=== PATIENT | male | born 1960 | race American Indian/Alaskan Native ===

== ENCOUNTER 2018-03-25 02:04 | Emergency (ER) | payer MEDICAID ==
--- NOTE | 2018-03-25 02:59 | XRay Report ---
FINAL REPORT EXAM: XR CHEST ROUTINE 2V HISTORY: Shortness of breath TECHNIQUE: PA and lateral views of the chest were submitted. There are no previous studies available for comparison FINDINGS: The lungs are hyperinflated with scarring in both apices. The heart size is normal. There are no localized infiltrates. There is a very small loculated pneumothorax along the left lung base which may be chronic. There is localized scarring in the same location. The lungs are not congested. The skeletal structures do not show any acute changes. IMPRESSION: COPD. Scarring both lung apices as well as left lung base. Very small loculated pneumothorax along the left costophrenic angle which may be on a chronic basis. No acute infiltrates or congestion.
[2018-03-25 03:16] LABS: Basophils # (Auto) 0.1 K/mm3 (0.0-0.1); Basophils % (Auto) 0.9 % (0.0-1.8); Eosinophils # (Auto) 0.2 K/mm3 (0.0-0.4); Eosinophils % (Auto) 3.5 % (0.0-4.3); Hematocrit 38.9 % (35.5-45.6); Hemoglobin 13.3 gm/dl (11.8-15.2); Lymphocytes # (Auto) 1.6 K/mm3 (1.2-5.4); Lymphocytes % (Auto) 25.6 % (13.4-35.0); Mean Corpuscular HGB Conc 34 % (32-34); Mean Corpuscular Hemoglobin 32 pg (28-32); Mean Corpuscular Volume 94 fl (84-94); Monocytes # (Auto) 0.6 K/mm3 (0.0-0.8); Monocytes % (Auto) 8.6 % (0.0-7.3); Platelet Count 198 K/mm3 (140-440); Red Blood Count 4.15 M/mm3 (3.65-5.03); Red Cell Distribution Width 14.9 % (13.2-15.2)
[2018-03-25] MEDS ORDERED: PROVENTIL IH ONE ×2 (03:30→05:55)
[2018-03-25 03:33] LABS: BUN/Creatinine Ratio 15; Blood Urea Nitrogen 15 mg/dL (9-20); Calcium 8.7 mg/dL (8.4-10.2); Hemolysis Index 2
--- NOTE | 2018-03-25 06:23 | Emergency Department Report ---
ED Shortness of Breath HPI - General Chief Complaint: Dyspnea/Respdistress Stated Complaint: KAYLEY Time Seen by Provider: 03/25/18 06:20 Source: patient Mode of arrival: Stretcher Limitations: No Limitations - History of Present Illness Initial Comments: Patient with past history of COPD presents with difficulty breathing developing rapidly over the past hour. Patient was given nebulized albuterol by EMS prior to arrival, with significant improvement, with normalization of ventilations and vital signs by time of arrival. -: Sudden, hour(s) (2-3 hours) Pain Scale: 5 Quality: aching Consistency: intermittent Improves With: nothing Worsens With: nothing Known History Of: COPD Associated Symptoms: denies other symptoms - Related Data Previous Rx's Medication Instructions Recorded Last Taken Type Prednisone [predniSONE 5 mg (6-Day 5 mg PO .TAPER #1 tab.ds.pk 12/29/16 Unknown Rx Pack, 21 Tabs)] Albuterol Sulfate [Ventolin HFA] 2 puff IH Q4H PRN #1 hfa.aer.ad 03/25/18 Unknown Rx Azithromycin [Zithromax TAB] 500 mg PO QDAY #3 tablet 03/25/18 Unknown Rx predniSONE [Deltasone] 20 mg PO QDAY #15 tablet 03/25/18 Unknown Rx Allergies Allergy/AdvReac Type Severity Reaction Status Date / Time No Known Allergies Allergy Unverified 07/18/13 02:27 ED Review of Systems ROS: Stated complaint: KAYLEY Other details as noted in HPI Comment: All other systems reviewed and negative Constitutional: denies: chills, diaphoresis, fever Eyes: denies: eye pain, eye discharge, vision change ENT: denies: ear pain, throat pain Respiratory: cough (chronic, without production of sputum), shortness of breath (chronic, recurrent, secondary to COPD) Cardiovascular: chest pain (anterior left chest, associated with difficulty breathing) Endocrine: no symptoms reported Gastrointestinal: denies: abdominal pain, nausea, diarrhea Musculoskeletal: denies: back pain, joint swelling, arthralgia Skin: denies: rash, lesions ED Past Medical Hx - Past Medical History Previous Medical History?: Yes Hx COPD: Yes - Surgical History Past Surgical History?: No - Social History Smoking Status: Current Every Day Smoker Substance Use Type: None - Medications Home Medications: Home Medications Medication Instructions Recorded Confirmed Last Taken Type Prednisone [predniSONE 5 mg (6-Day 5 mg PO .TAPER #1 tab.ds.pk 12/29/16 Unknown Rx Pack, 21 Tabs)] Albuterol Sulfate [Ventolin HFA] 2 puff IH Q4H PRN #1 hfa.aer.ad 03/25/18 Unknown Rx Azithromycin [Zithromax TAB] 500 mg PO QDAY #3 tablet 03/25/18 Unknown Rx predniSONE [Deltasone] 20 mg PO QDAY #15 tablet 03/25/18 Unknown Rx ED Physical Exam - General Limitations: No Limitations General appearance: in no apparent distress (examined after patient had received 2 nebulized bronchodilator treatments) - Head Head exam: Present: atraumatic, normocephalic - Eye Eye exam: Present: PERRL - ENT ENT exam: Present: normal exam - Neck Neck exam: Present: normal inspection, other (negative for JVD). Absent: tenderness - Respiratory Respiratory exam: Present: wheezes (scattered, and expiratory,), chest wall tenderness (left anterior and lateral chest wall, reproduces discomfort). Absent: respiratory distress - Cardiovascular Cardiovascular Exam: Present: regular rate, normal rhythm. Absent: systolic murmur, diastolic murmur, rubs, gallop - GI/Abdominal GI/Abdominal exam: Present: soft, normal bowel sounds - External exam: Present: normal external exam - Extremities Exam Extremities exam: Present: normal inspection - Back Exam Back exam: Present: normal inspection - Neurological Exam Neurological exam: Present: alert, oriented X3 - Psychiatric Psychiatric exam: Present: normal affect, normal mood - Skin Skin exam: Present: warm, dry, intact, normal color. Absent: rash ED Course Vital Signs 03/25/18 03/25/18 03/25/18 02:07 06:08 07:33 Temperature 97.5 F L 97.6 F Pulse Rate 88 66 Respiratory 20 24 25 H Rate Blood Pressure 135/84 Blood Pressure 139/88 [Right] O2 Sat by Pulse 96 99 Oximetry ED Medical Decision Making - Lab Data Result diagrams: 03/25/18 02:51 03/25/18 02:51 - EKG Data -: EKG Interpreted by [facility] EKG shows normal: sinus rhythm, intervals (normal NC interval, normal QT interval of [address]-T waves (nonspecific anterior precordial ST elevation, no findings of acute SD.) Rate: normal - Radiology Data Radiology results: report reviewed Chest x-ray was negative for acute lobar infiltrate, but there was hyperinflation of COPD, and there was suggestion of a pneumothorax in the left costophrenic angle, perhaps loculated. CT scan of chest was performed without contrast for evaluation of pneumothorax, this was seen to be an emphysematous bleb, but no evidence of acute pneumothorax. - Medical Decision Making Patient has had an acute exacerbation of COPD, with significant improvement after treatment with Solu-Medrol and 2 rounds of bronchodilators with albuterol. He is stable for discharge home with a short course of antibodies, azithromycin, as well as prednisone on a tapering dose, and refill of his bronchodilator medications. Critical Care Time: No Critical care attestation.: If time is entered above; I have spent that time in minutes in the direct care of this critically ill patient, excluding procedure time. ED Disposition Clinical Impression: COPD (chronic obstructive pulmonary disease) with acute bronchitis, Respiratory distress, acute Disposition: DC-01 TO HOME OR SELFCARE Is pt being admited?: No Does the pt Need Aspirin: No Condition: Stable Instructions: Acute Bronchitis (ED), Chronic Obstructive Pulmonary Disease (ED) , Chronic Bronchitis (ED) Prescriptions: Albuterol Sulfate [Ventolin HFA] 2 puff IH Q4H PRN #1 hfa.aer.ad PRN Reason: Shortness Of Breath Azithromycin [Zithromax TAB] 500 mg PO QDAY #3 tablet predniSONE [Deltasone] 20 mg PO QDAY #15 tablet Referrals: PRIMARY CARE, [Primary Care Provider] - 3-5 Days Time of Disposition: 10:06
--- NOTE | 2018-03-25 07:34 | Cat Scan Report ---
FINAL REPORT EXAM: CT CHEST WO CON HISTORY: COPD, eval LLL loculated pneumothorax TECHNIQUE: Routine axial imaging was obtained of the thorax without IV contrast with sagittal coronal reconstructions. Correlation is made to the chest x-ray of 03/25/2018. FINDINGS: The lungs reveal extensive emphysema with multiple bulla particularly in the upper lobes. There are numerous blebs scattered throughout both lungs. In the left lung base there is localized pleural parenchymal scarring with several blebs. This is accounting for appearance of a localized pneumothorax on the chest radiograph. There are no infiltrates or congestion. The heart size is normal. The thoracic aorta is normal in caliber. There is no evidence of adenopathy or pericardial effusion. The skeletal structures reveal mild disc degeneration in the thoracic spine. At the thoracic inlet the thyroid gland appears normal. In the upper abdomen the adrenal glands not enlarged. IMPRESSION: Severe emphysema with extensive bullous changes particularly upper lobes with scattered blebs throughout both lungs. Pleural parenchymal scarring in the left lung base with localized blebs. A definite pneumothorax is not seen along the left lung base. No evidence of acute infiltrates, congestion or pleural effusion.
[2018-03-25 10:07] VITALS: BP 151/101
== END 2018-03-25 10:20 | disposition home or self-care (01) ==
LOC: ED 02:04
DX: J44.9 Chronic obstructive pulmonary disease, unspecified (principal); F17.200 Nicotine dependence, unspecified, uncomplicated
CPT/HCPCS: 36415; 71046; 71250; 80048; 84484; 85025; 93005; 93010; 96374; 99285; J2930

== ENCOUNTER 2019-09-28 10:50 | Emergency (ER) | payer MEDICAID ==
--- NOTE | 2019-09-28 11:53 | Event Note ---
ED Screening Note Date of service: 09/28/19 Time: 11:48 ED Screening Note: This is a 59 y.o. M. that presents to the ER with left fractured distal ulner 3 weeks ago in [place]. He was referred to Orthopedic Surgeon there but they didn't take his insurance. Reports pain and not sure where to follow up at. This initial assessment/diagnostic orders/clinical plan/treatment(s) is/are subject to change based on patients health status, clinical progression and re- assessment by fellow clinical providers in the ED. Further treatment and workup at subsequent clinical providers discretion. Patient/guardian urged not to elope from the ED as their condition may be serious if not clinically assessed and managed. Initial orders include:
[2019-09-28 12:01] VITALS: BP 150/88
[2019-09-28] MEDS ORDERED: HYDROcodone/ACETAMINOPHEN 5-325 MG TAB PO ONE (13:36)
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
== END 2019-09-28 14:43 | disposition home or self-care (01) ==
LOC: ED 10:50
DX: S52.602A Unspecified fracture of lower end of left ulna, initial encounter for closed fracture (principal); J44.9 Chronic obstructive pulmonary disease, unspecified; Z79.899 Other long term (current) drug therapy; X58.XXXA Exposure to other specified factors, initial encounter; Y93.89 Activity, other specified; Y92.89 Other specified places as the place of occurrence of the external cause; Y99.8 Other external cause status

== ENCOUNTER 2020-05-17 02:09 | Emergency (ER) | payer MEDICAID ==
--- NOTE | 2020-05-17 05:17 | Emergency Department Report ---
ED Shortness of Breath HPI - General Chief Complaint: Dyspnea/Respdistress Stated Complaint: SHORTNESS OF BREATH Time Seen by Provider: 05/17/20 03:39 Source: patient Mode of arrival: Ambulatory Limitations: No Limitations - History of Present Illness Initial Comments: 60-year-old male with history of COPD presents to ED with shortness of breath. Reports chest congestion x1 week. Patient reports he has a chronic cough. Patient denies fever, vomiting, diarrhea loss of smell or taste, or known exposure to anyone who has tested positive for COVID-19. Patient states he ran out of his albuterol inhaler. Complaint: shortness of breath -: week(s) (1) Severity: mild Consistency: constant Improves With: nothing Worsens With: exertion Known History Of: COPD Treatments Prior to Arrival: none - Related Data Home Oxygen Therapy: No Previous Rx's Medication Instructions Recorded Last Taken Type Cyclobenzaprine [Flexeril] 10 mg PO QHS #20 tablet 09/28/19 Unknown Rx HYDROcodone/APAP 5-325 [[place] 1 each PO Q6HR #10 tablet 09/28/19 Unknown Rx 5/325] Naproxen [Naprosyn] 500 mg PO BID #30 tablet 09/28/19 Unknown Rx Albuterol Sulfate [Proventil Hfa] 2 puff IH Q4HR PRN #1 hfa.aer.ad 05/17/20 Unknown Rx predniSONE [Deltasone] 50 mg PO QDAY #5 tab 05/17/20 Unknown Rx Allergies Allergy/AdvReac Type Severity Reaction Status Date / Time No Known Allergies Allergy Verified 05/17/20 02:14 ED Review of Systems ROS: Stated complaint: SHORTNESS OF BREATH Other details as noted in HPI Comment: All other systems reviewed and negative Constitutional: denies: fever Respiratory: cough, shortness of breath Gastrointestinal: denies: vomiting, diarrhea ED Past Medical Hx - Past Medical History Previous Medical History?: Yes Hx COPD: Yes Additional medical history: sinus - Surgical History Past Surgical History?: No - Social History Smoking Status: Never Smoker Substance Use Type: Alcohol - Medications Home Medications: Home Medications Medication Instructions Recorded Confirmed Last Taken Type Cyclobenzaprine [Flexeril] 10 mg PO QHS #20 tablet 09/28/19 Unknown Rx HYDROcodone/APAP 5-325 [[place] 1 each PO Q6HR #10 tablet 09/28/19 Unknown Rx 5/325] Naproxen [Naprosyn] 500 mg PO BID #30 tablet 09/28/19 Unknown Rx Albuterol Sulfate [Proventil Hfa] 2 puff IH Q4HR PRN #1 hfa.aer.ad 05/17/20 Unknown Rx predniSONE [Deltasone] 50 mg PO QDAY #5 tab 05/17/20 Unknown Rx ED Physical Exam - General Limitations: No Limitations General appearance: alert, in no apparent distress - Head Head exam: Present: atraumatic, normocephalic - Eye Eye exam: Present: normal appearance, EOMI - ENT ENT exam: Present: mucous membranes moist - Neck Neck exam: Present: normal inspection - Respiratory Respiratory exam: Present: normal lung sounds bilaterally. Absent: respiratory distress - Cardiovascular Cardiovascular Exam: Present: regular rate, normal rhythm - GI/Abdominal GI/Abdominal exam: Present: soft. Absent: distended, tenderness - Extremities Exam Extremities exam: Present: normal inspection - Neurological Exam Neurological exam: Present: alert, oriented X3 - Psychiatric Psychiatric exam: Present: normal affect, normal mood - Skin Skin exam: Present: warm, dry, intact, normal color ED Course Vital Signs 05/17/20 02:12 Temperature 98.0 F Pulse Rate 95 H Respiratory 18 Rate Blood Pressure 131/83 O2 Sat by Pulse 99 Oximetry ED Medical Decision Making - Radiology Data Radiology results: report reviewed, image reviewed - Medical Decision Making 60-year-old, history of COPD, male presents to ED with shortness of breath. Patient states he has run out of his inhaler. O2 sats are normal, along with the remainder of his vital signs. Patient laying on a stretcher asleep when I arrived to examine him. Lungs are clear. Chest x-ray is negative for any acute findings. Patient will be discharged home with prescription for albuterol inhaler and prednisone. Outpatient follow-up advised. - Differential Diagnosis COPD, pneumonia, pulmonary edema Critical care attestation.: If time is entered above; I have spent that time in minutes in the direct care of this critically ill patient, excluding procedure time. ED Disposition Clinical Impression: COPD (chronic obstructive pulmonary disease) Disposition: - TO HOME OR SELFCARE Is pt being admited?: No Condition: Stable Instructions: Chronic Obstructive Pulmonary Disease (ED) Prescriptions: predniSONE [Deltasone] 50 mg PO QDAY #5 tab Albuterol Sulfate [Proventil Hfa] 2 puff IH Q4HR PRN #1 hfa.aer.ad PRN Reason: Wheezing Referrals: PRIMARY CARE, [Primary Care Provider] - 3-[address] [facility] [Provider Group] - 3-5 Days Time of Disposition: 05:27
--- NOTE | 2020-05-17 05:19 | XRay Report ---
CHEST 1 VIEW 4:50 AM INDICATION / CLINICAL INFORMATION: Shortness of breath and chest congestion. Productive cough. COMPARISON: 03/25/18. FINDINGS: SUPPORT DEVICES: None. HEART / MEDIASTINUM: The heart size and pulmonary vasculature are normal. LUNGS / PLEURA: The lungs are mildly hyperinflated with mild bullous changes in both lung apices. No pneumothorax. ADDITIONAL FINDINGS: No significant additional findings. IMPRESSION: Emphysema without acute abnormality or other change. There is no evidence of pneumonia or edema. Signer Name: Odilon Mari MD Signed: 05/17/2020 5:14 AM Workstation Name: [id number]
[2020-05-17 06:21] VITALS: BP 128/78
== END 2020-05-17 06:00 | disposition home or self-care (01) ==
LOC: ED 02:09
DX: J44.9 Chronic obstructive pulmonary disease, unspecified (principal); Z79.899 Other long term (current) drug therapy
CPT/HCPCS: 71045; 99283

== ENCOUNTER 2021-02-10 07:17 | Emergency (ER) | payer MEDICAID ==
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
[2021-02-10] MEDS ORDERED: MORPHINE 4 MG/1 ML INJ IV ONE (10:40)
[2021-02-10] MEDS ORDERED: ONDANSETRON 4 MG/2 ML INJ IV ONE (10:40)
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
[2021-02-10 12:28] LABS: Basophils % (Auto) 0.4 % (0.0-1.8); Eosinophils # (Auto) 0.2 K/mm3 (0.0-0.4); Hematocrit 41.7 % (35.5-45.6); Hemoglobin 14.1 gm/dl (11.8-15.2); Lymphocytes # (Auto) 1.4 K/mm3 (1.2-5.4); Lymphocytes % (Auto) 17.7 % (13.4-35.0); Mean Corpuscular HGB Conc 34 % (32-34); Mean Corpuscular Volume 97 fl (84-94); Monocytes # (Auto) 0.7 K/mm3 (0.0-0.8); Monocytes % (Auto) 9.1 % (0.0-7.3); Platelet Count 179 K/mm3 (140-440); Red Blood Count 4.29 M/mm3 (3.65-5.03); Red Cell Distribution Width 14.5 % (13.2-15.2)
[2021-02-10 12:45] LABS: Alanine Aminotransferase 12 units/L (7-56); Albumin 3.8 g/dL (3.9-5); BUN/Creatinine Ratio 13; Blood Urea Nitrogen 17 mg/dL (9-20); Calcium 8.8 mg/dL (8.4-10.2); Hemolysis Index 9
--- NOTE | 2021-02-10 13:14 | Cat Scan Report ---
CT NECK WITH CONTRAST HISTORY: Crepitus COMPARISON: Facial CT done earlier on 02-10-21 TECHNIQUE: Routine CT of the neck is performed following intravenous contrast. All CT scans at this [facility] are performed using CT dose reduction for ALARA by means of automated exposure control. CONTRAST: 100 mL Omnipaque 300 FINDINGS: Skull Base: No significant abnormality. Parotid, Carotid, Retropharyngeal, Prevertebral, Pharyngeal Mucosal, and Wire Coiler Spaces: There is subcutaneous air in the right cheek and right neck extending into the right database manager space, right c arotid space, and into the pharyngeal soft tissues. Airway: Patent and without significant abnormality. Lymphatics: No lymphadenopathy. Vasculature: No significant abnormality. Osseous Structures: Previously demonstrated right maxillary sinus wall fracture appears unchanged. Additional findings: None. IMPRESSION: 1. Extensive subcutaneous air in the right side of the neck extending into the retropharyngeal space. The retropharyngeal air extends down to about the T1 vertebral level. There are no focal focal occlu sions. 2. Previously seen right maxillary sinus fracture appears unchanged. Signer Name: Vincetn Da Silva MD Signed: 02/10/2021 1:09 PM Workstation Name: [id number]
--- NOTE | 2021-02-10 13:14 | Cat Scan Report ---
CT CHEST WITH CONTRAST INDICATION / CLINICAL INFORMATION: Pneumomediastinum. TECHNIQUE: Axial CT images were obtained through the chest after [address] scans at this location are performed using CT dose reduction for ALARA by means of automated exposure control. COMPARISON: March 25, 2018 FINDINGS: Significant emphysematous changes seen in bilateral lungs with scarring in lung apices. No large pneu mothorax is seen. Minimal atelectasis in the left lower lung. Soft tissue gas is seen tracking within the neck. Please see CT neck soft tissues. No acute bone findings are seen. Gas extends to the super ior mediastinum however the middle mediastinum appears normal. Heart and aorta appear normal. There a re multiple hypodensities scattered throughout the liver. A few renal hypodensities are seen bilatera lly. IMPRESSION: 1. Severe emphysema with extensive bullous changes in the upper lobes. No pneumothorax. 2. Emphysematous gas is seen within the soft tissues of neck. Please see CT soft tissue neck. Signer Name: Evans Greene MD Signed: 02/10/2021 1:10 PM Workstation Name: [id number]
[2021-02-10 19:47] VITALS: BP 121/81
== END 2021-02-10 19:47 | disposition other institution (70) ==
LOC: ED 07:17
DX: S02.40EA Zygomatic fracture, right side, initial encounter for closed fracture (principal); S02.40CA Maxillary fracture, right side, initial encounter for closed fracture; S02.2XXA Fracture of nasal bones, initial encounter for closed fracture; J44.9 Chronic obstructive pulmonary disease, unspecified; F17.200 Nicotine dependence, unspecified, uncomplicated; Z79.899 Other long term (current) drug therapy; Y04.2XXA Assault by strike against or bumped into by another person, initial encounter; Y93.89 Activity, other specified; Y92.89 Other specified places as the place of occurrence of the external cause; Y99.8 Other external cause status
CPT/HCPCS: 36415; 70450; 70486; 70491; 71260; 80053; 85025; 96374; 96375; 99285; J2270; J2405; Q9967

== ENCOUNTER 2021-09-02 02:58 | Inpatient (IN) | payer MEDICAID ==
--- NOTE | 2021-09-02 03:11 | Emergency Department Report ---
ED Shortness of Breath HPI - General Chief Complaint: Dyspnea/Respdistress Stated Complaint: KAYLEY Time Seen by Provider: 09/02/21 03:06 Source: patient Mode of arrival: Stretcher Limitations: No Limitations - History of Present Illness Initial Comments: Patient is a 61-year-old male who presents emergency room with complaints of chest pain shortness of breath. Patient states his symptoms started 24 hours ago. Patient states his symptoms are the same. Patient states he also has a dry cough. Patient denies fever or chills. Patient states he ran out of his COPD medications. Patient states he feels like a COPD exacerbation. Patient states his chest pain pain. Patient states the chest pain is bilateral. Patient states the pain is better with rest. Patient states the pain is worse with cough and movement. Patient states the pain is a 2 out of 10. Patient states it is a pressure. Patient states that shortness of breath is better with rest and worse with exertion. Patient denies recent travel. Patient denies recent international travel. Patient denies exposure to the novel coronavirus. Patient denies sick contacts. Patient denies fever and chills. Patient denies cough. Patient denies diarrhea. Patient denies coming in contact with anybody with symptoms of the novel coronavirus. Patient brought in by EMS. EMS gave the patient albuterol 5 mg. Patient's lung sounds improved with the albuterol per EMS. Report received EMS. Complaint: shortness of breath, cough, chest pain -: Sudden - Related Data Previous Rx's Medication Instructions Recorded Last Taken Type Albuterol Sulfate [Proventil Hfa] 2 puff IH Q4HR PRN #1 hfa.aer.ad 05/17/20 08/29/21 Rx Allergies Allergy/AdvReac Type Severity Reaction Status Date / Time No Known Allergies Allergy Verified 09/04/21 12:07 ED Review of Systems ROS: Stated complaint: KAYLEY Other details as noted in HPI Constitutional: denies: chills, fever Eyes: denies: eye pain, eye discharge, vision change ENT: denies: ear pain, throat pain Respiratory: see HPI, cough, shortness of breath. denies: wheezing Cardiovascular: as per HPI, chest pain. denies: palpitations Endocrine: no symptoms reported Gastrointestinal: denies: abdominal pain, nausea, diarrhea Genitourinary: denies: urgency, dysuria Musculoskeletal: denies: back pain, joint swelling, arthralgia Skin: denies: rash, lesions Neurological: denies: headache, weakness, paresthesias Psychiatric: denies: anxiety, depression Hematological/Lymphatic: denies: easy bleeding, easy bruising ED Past Medical Hx - Past Medical History Previous Medical History?: Yes Hx COPD: Yes Additional medical history: sinus - Surgical History Past Surgical History?: No - Family History Family history: no significant - Social History Smoking Status: Current Every Day Smoker Substance Use Type: None - Medications Home Medications: Home Medications Medication Instructions Recorded Confirmed Last Taken Type Albuterol Sulfate [Proventil Hfa] 2 puff IH Q4HR PRN #1 hfa.aer.ad 05/17/20 09/04/21 08/29/21 Rx ED Physical Exam - General Limitations: No Limitations General appearance: alert, in no apparent distress - Head Head exam: Present: atraumatic, normocephalic - Eye Eye exam: Present: normal appearance - ENT ENT exam: Present: mucous membranes moist - Neck Neck exam: Present: normal inspection - Respiratory Respiratory exam: Present: normal lung sounds bilaterally, chest wall tenderness, decreased breath sounds. Absent: wheezes, rales, rhonchi, stridor, accessory muscle use - Cardiovascular Cardiovascular Exam: Present: regular rate, normal rhythm. Absent: systolic murmur, diastolic murmur, rubs, gallop - GI/Abdominal GI/Abdominal exam: Present: soft, normal bowel sounds - Rectal Rectal exam: Present: deferred - Extremities Exam Extremities exam: Present: normal inspection - Back Exam Back exam: Present: normal inspection - Neurological Exam Neurological exam: Present: alert, oriented X3 - Psychiatric Psychiatric exam: Present: normal affect, normal mood - Skin Skin exam: Present: warm, dry, intact, normal color. Absent: rash ED Course Vital Signs 09/02/21 09/02/21 09/02/21 03:19 04:45 05:01 Temperature 98.3 F Pulse Rate 82 88 80 Respiratory 18 12 25 H Rate Blood Pressure 121/79 129/85 Blood Pressure 141/92 [Left] O2 Sat by Pulse 100 95 97 Oximetry 09/02/21 09/02/21 09/02/21 05:15 05:31 05:45 Temperature Pulse Rate 80 80 77 Respiratory 19 20 19 Rate Blood Pressure 117/81 112/74 104/70 Blood Pressure [Left] O2 Sat by Pulse 98 98 98 Oximetry 09/02/21 09/02/21 09/02/21 06:01 06:15 06:31 Temperature Pulse Rate 80 85 77 Respiratory 17 19 17 Rate Blood Pressure 112/74 116/80 111/76 Blood Pressure [Left] O2 Sat by Pulse 99 97 100 Oximetry 09/02/21 09/02/21 09/02/21 06:45 07:01 07:15 Temperature Pulse Rate 78 75 77 Respiratory 24 21 19 Rate Blood Pressure 113/75 111/76 121/74 Blood Pressure [Left] O2 Sat by Pulse 100 100 100 Oximetry 09/02/21 09/02/21 09/02/21 07:31 07:45 08:01 Temperature Pulse Rate 77 76 83 Respiratory 19 20 20 Rate Blood Pressure 113/75 106/78 131/84 Blood Pressure [Left] O2 Sat by Pulse 100 100 100 Oximetry 09/02/21 09/02/21 09/02/21 08:15 08:31 08:45 Temperature Pulse Rate 82 76 76 Respiratory 21 22 16 Rate Blood Pressure 124/81 122/83 118/78 Blood Pressure [Left] O2 Sat by Pulse 100 100 100 Oximetry 09/02/21 09/02/21 09/02/21 09:01 09:15 09:31 Temperature Pulse Rate 78 80 79 Respiratory 22 20 20 Rate Blood Pressure 122/83 129/87 110/75 Blood Pressure [Left] O2 Sat by Pulse 98 100 100 Oximetry 09/02/21 09/02/21 09/02/21 09:45 10:01 10:15 Temperature Pulse Rate 79 82 85 Respiratory 20 21 19 Rate Blood Pressure 107/69 132/67 139/88 Blood Pressure [Left] O2 Sat by Pulse 100 99 100 Oximetry 09/02/21 09/02/21 09/02/21 10:31 10:45 11:01 Temperature Pulse Rate 77 76 75 Respiratory 19 19 17 Rate Blood Pressure 110/72 117/78 110/72 Blood Pressure [Left] O2 Sat by Pulse 100 100 99 Oximetry 09/02/21 09/02/21 09/02/21 11:15 11:31 11:45 Temperature Pulse Rate 80 79 82 Respiratory 21 21 21 Rate Blood Pressure 111/78 119/79 136/80 Blood Pressure [Left] O2 Sat by Pulse 100 98 100 Oximetry 09/02/21 09/02/2109/02/21 12:01 12:15 12:31 Temperature Pulse Rate 83 79 72 Respiratory 21 20 21 Rate Blood Pressure 133/90 142/87 115/77 Blood Pressure [Left] O2 Sat by Pulse 100 100 100 Oximetry 09/02/21 09/02/21 09/02/21 12:45 13:01 13:15 Temperature Pulse Rate 74 73 79 Respiratory 18 18 19 Rate Blood Pressure 129/77 103/70 121/76 Blood Pressure [Left] O2 Sat by Pulse 99 99 100 Oximetry 09/02/21 09/02/21 09/02/21 13:31 13:45 14:01 Temperature Pulse Rate 85 85 95 H Respiratory 17 17 21 Rate Blood Pressure 126/84 109/79 126/83 Blood Pressure [Left] O2 Sat by Pulse 100 99 98 Oximetry 09/02/21 09/02/21 09/02/21 14:15 14:31 14:45 Temperature Pulse Rate Respiratory Rate Blood Pressure 127/107 133/85 139/86 Blood Pressure [Left] O2 Sat by Pulse 99 74 L 96 Oximetry 09/02/21 09/02/21 09/02/21 14:49 15:01 15:15 Temperature 98.5 F Pulse Rate 80 Respiratory 18 Rate Blood Pressure 124/85 121/78 Blood Pressure 98/62 [Left] O2 Sat by Pulse 98 96 98 Oximetry 09/02/21 09/02/21 09/02/21 15:31 15:45 16:01 Temperature Pulse Rate Respiratory Rate Blood Pressure 117/78 114/78 122/80 Blood Pressure [Left] O2 Sat by Pulse 99 98 97 Oximetry - Reevaluation(s) Reevaluation #1: Patient is short of breath again. Patient's wheezing again. Patient will be given steroids and DuoNeb. Patient has a CT scan pending. 09/02/21 05:50 Reevaluation #2: Patient signed out to the oncoming physician to follow-up on pending CT scan of the chest and admit the patient to the hospital service. 09/02/21 06:11 - Consultations Consultation #1: Hospitalist consulted for admission. Hospitalist to admit patient. Hospitalist after the patient even though the patient has a pending CT scan of the chest. 09/02/21 06:20 ED Medical Decision Making - Lab Data Result diagrams: 09/02/21 03:47 09/03/21 09:37 - EKG Data -: EKG Interpreted by Md EKG shows normal: sinus rhythm, axis, intervals, QRS complexes, ST-T waves Rate: normal - Radiology Data Radiology results: report reviewed CHEST 2 VIEWS INDICATION / CLINICAL INFORMATION: Dyspnea. COMPARISON: 05/17/2020 FINDINGS: There is lucency in the left costophrenic angle which could represent left lower lung small pneumothorax. Nodular density over the right lung may represent nipple shadow. No focal co nsolidation IMPRESSION: Lucency of the left costophrenic angle could represent left pneumothorax. A CT could be performed for further evaluation. CT CHEST WITH CONTRAST INDICATION / CLINICAL INFORMATION: sob. abn chest xr. TECHNIQUE: Axial CT images were obtained through the chest after IV contrast. All CT scans at this location are performed using CT dose reduction for ZolkC by means of automated exposure control. COMPARISON: None available. FINDINGS: Diffuse emphysematous changes seen within the lungs. No focal consolidation is seen. Minimal atelectasis. Heart and aorta appear normal. Atherosclerotic changes seen throughout the aorta ADDITIONAL FINDINGS: None. UPPER ABDOMEN: No significant abnormality. SKELETAL SYSTEM: No significant abnormality. IMPRESSION: 1. No pneumothorax is seen. Lungs are hyperinflated suggesting COPD - Medical Decision Making Patient is a 61-year-old male who presents emergency room with complaints of cough, shortness of breath, chest pain. Patient's chest pain was reproducible with palpation. Patient has a history of COPD. Patient given albuterol by EMS. Patient's lung sounds improved. Patient while in the ER began to wheeze and have shortness of breath again patient was given Solu-Medrol and another DuoNeb. Patient had labs done which were essentially unremarkable. Patient had a chest x-ray done which showed a possible pneumothorax and the radiologist recommended a CT scan of the chest. CT scan of the chest was performed. Patient CT scan of the chest shows no pneumothorax. No pneumonia noted. Patient had labs done which were essentially unremarkable. Patient admitted to the hospital service for further evaluation treatment. Critical care time documented due to the multiple reassessments, prolonged time at the bedside, interpretation of diagnostics and labs. - Differential Diagnosis Chest pain, shortness of breath, COPD exacerbation, pneumonia. Critical Care Time: Yes Critical care time in (mins) excluding proc time.: 35 Critical care attestation.: If time is entered above; I have spent that time in minutes in the direct care of this critically ill patient, excluding procedure time. Critical Care Time: 35 minutes ED Disposition Clinical Impression: COPD exacerbation, Chest wall pain, Shortness of breath, Abnormal chest x-ray Chest pain Qualifiers: Chest pain type: unspecified Qualified Code(s): R07.9 - Chest pain, unspecified Disposition: 09 ADMITTED INPATIENT Is pt being admited?: Yes Does the pt Need Aspirin: No Condition: Stable Time of Disposition: 06:29
--- NOTE | 2021-09-02 03:57 | XRay Report ---
CHEST 2 VIEWS INDICATION / CLINICAL INFORMATION: Dyspnea. COMPARISON: 05/17/2020 FINDINGS: There is lucency in the left costophrenic angle which could represent left lower lung small pneumotho rax. Nodular density over the right lung may represent nipple shadow. No focal consolidation IMPRESSION: Lucency of the left costophrenic angle could represent left pneumothorax. A CT could be performed for further evaluation. Signer Name: Evans Greene MD Signed: 09/02/2021 3:52 AM Workstation Name: [id number]
[2021-09-02 04:07] LABS: Basophils % (Auto) 0.6 % (0.0-1.8); Eosinophils # (Auto) 0.5 K/mm3 (0.0-0.4); Eosinophils % (Auto) 5.7 % (0.0-4.3); Hematocrit 49.8 % (35.5-45.6); Hemoglobin 16.3 gm/dl (11.8-15.2); Lymphocytes # (Auto) 1.7 K/mm3 (1.2-5.4); Lymphocytes % (Auto) 21.2 % (13.4-35.0); Mean Corpuscular HGB Conc 33 % (32-34); Mean Corpuscular Volume 100 fl (84-94); Monocytes # (Auto) 0.9 K/mm3 (0.0-0.8); Monocytes % (Auto) 10.7 % (0.0-7.3); Platelet Count 220 K/mm3 (140-440); Red Cell Distribution Width 15.1 % (13.2-15.2)
[2021-09-02] MEDS ORDERED: methylPREDNISolone Sod Succinate 125 MG/2 ML INJ IV ONE (05:56)
[2021-09-02] MEDS ORDERED: IPRATROPIUM/ALBUTEROL SULFATE 3 ML AMPUL.NEB IH ONE (06:08)
[2021-09-02 06:18] LABS: Calcium 9.3 mg/dL (8.4-10.2)
--- NOTE | 2021-09-02 07:25 | Cat Scan Report ---
CT CHEST WITH CONTRAST INDICATION / CLINICAL INFORMATION: sob. abn chest xr. TECHNIQUE: Axial CT images were obtained through the chest after IV contrast. All CT scans at this location are performed using CT dose reduction for ALARA by means of automated exposure control. COMPARISON: None available. FINDINGS: Diffuse emphysematous changes seen within the lungs. No focal consolidation is seen. Minimal atelecta sis. Heart and aorta appear normal. Atherosclerotic changes seen throughout the aorta ADDITIONAL FINDINGS: None. UPPER ABDOMEN: No significant abnormality. SKELETAL SYSTEM: No significant abnormality. IMPRESSION: 1. No pneumothorax is seen. Lungs are hyperinflated suggesting COPD Signer Name: Evans Greene MD Signed: 09/02/2021 7:20 AM Workstation Name: [id number]
[2021-09-02] MEDS ORDERED: LIDOCAINE-MPF (1%) 10 MG/1 ML VIAL 5 ML INFILTRATI ONE (08:18)
--- NOTE | 2021-09-02 08:26 | Progress Note ---
Hospitalist Physical - Constitutional Vitals: Temp Pulse Resp BP Pulse Ox 98.3 F 76 20 106/78 100 09/02/21 03:19 09/02/21 07:45 09/02/21 07:45 09/02/21 07:45 09/02/21 07:45 HEART Score - HEART Score Troponin: Troponin T < 0.010 ng/mL (0.00-0.029) 09/02/21 04:50 Results - Labs CBC & Chem 7: 09/02/21 03:47 09/02/21 04:50 Labs: Laboratory Last Values WBC 8.1 K/mm3 (4.5-11.0) 09/02/21 03:47 RBC 5.00 M/mm3 (3.65-5.03) 09/02/21 03:47 Hgb 16.3 gm/dl (11.8-15.2) H 09/02/21 03:47 Hct 49.8 % (35.5-45.6) H 09/02/21 03:47 MCV 100 fl (84-94) H 09/02/21 03:47 MCH 33 pg (28-32) H 09/02/21 03:47 MCHC 33 % (32-34) 09/02/21 03:47 RDW 15.1 % (13.2-15.2) 09/02/21 03:47 Plt Count 220 K/mm3 (140-440) 09/02/21 03:47 Lymph % (Auto) 21.2 % (13.4-35.0) 09/02/21 03:47 [place] % (Auto) 10.7 % (0.0-7.3) H 09/02/21 03:47 Eos % (Auto) 5.7 % (0.0-4.3) H 09/02/21 03:47 Baso % (Auto) 0.6 % (0.0-1.8) 09/02/21 03:47 Lymph # (Auto) 1.7 K/mm3 (1.2-5.4) 09/02/21 03:47 [place] # (Auto) 0.9 K/mm3 (0.0-0.8) H 09/02/21 03:47 Eos # (Auto) 0.5 K/mm3 (0.0-0.4) H 09/02/21 03:47 Baso # (Auto) 0.0 K/mm3 (0.0-0.1) 09/02/21 03:47 Seg Neutrophils % 61.8 % (40.0-70.0) 09/02/21 03:47 Seg Neutrophils # 5.0 K/mm3 (1.8-7.7) 09/02/21 03:47 Sodium 145 mmol/L (137-145) 09/02/21 04:50 Potassium 4.1 mmol/L (3.6-5.0) 09/02/21 04:50 Chloride 104.6 mmol/L (98-107) 09/02/21 04:50 Carbon Dioxide 29 mmol/L (22-30) 09/02/21 04:50 Anion Gap 16 mmol/L 09/02/21 04:50 BUN 13 mg/dL (9-20) 09/02/21 04:50 Creatinine 1.5 mg/dL (0.8-1.3) H 09/02/21 04:50 Estimated GFR 58 ml/min 09/02/21 04:50 BUN/Creatinine Ratio 9 % 09/02/21 04:50 Glucose 137 mg/dL (75-100) H 09/02/21 04:50 Calcium 9.3 mg/dL (8.4-10.2) 09/02/21 04:50 Total Bilirubin 0.40 mg/dL (0.1-1.2) 09/02/21 04:50 AST 29 units/L (5-40) 09/02/21 04:50 ALT 13 units/L (7-56) 09/02/21 04:50 Alkaline Phosphatase 81 units/L (35-129) 09/02/21 04:50 Troponin T < 0.010 ng/mL (0.00-0.029) 09/02/21 04:50 Total Protein 6.7 g/dL (6.3-8.2) 09/02/21 04:50 Albumin 4.0 g/dL (3.9-5) 09/02/21 04:50 Albumin/Globulin Ratio 1.5 % 09/02/21 04:50 Active Medications - Current Medications Current Medications: Generic Name Dose Route Start Last Admin Trade Name Freq PRN Reason Stop Dose Admin Albuterol/Ipratropium 1 ampul 09/02/21 08:30 Ipratropium/Albuterol Sulfate 3 Ml Ampul.Neb IH Q6HRT [facility] Azithromycin 500 mg 09/02/21 10:00 Azithromycin 250 Mg Tab PO QDAY [facility] Protocol Enoxaparin Sodium 40 mg 09/02/21 22:00 Enoxaparin 40 Mg/0.4 Ml Inj SUB-Q QDAY@2200 [facility] Protocol Guaifenesin 600 mg 09/02/21 10:00 Guaifenesin Er 600 Mg Tab PO BID [facility] Sodium Chloride 1,000 mls @ 100 mls/hr 09/02/21 09:00 Nacl 0.45% 1000 Ml IV DIRECT [facility] Ceftriaxone Sodium 1,000 mg/ 50 mls @ 100 mls/hr 09/02/21 10:00 Sodium Chloride IV Q24HR [facility] Protocol Methylprednisolone Sodium 100 mls @ 200 mls/hr 09/02/21 14:00 Succinate 60 mg/ Sodium IV Chloride Q8HR [facility] Lidocaine 2 ml 09/02/21 08:18 Lidocaine-Mpf (1%) 10 Mg/1 Ml Vial 5 Ml INFILTRATI 09/02/21 08:19 ONCE ONE
[2021-09-02] MEDS: AZITHROMYCIN 250 MG TAB PO SCH (10:00)
[2021-09-02] MEDS: cefTRIAXone/NS 2 GM/100 ML 2 GM/100 ML BAG IV SCH (10:00)
[2021-09-02] MEDS ORDERED: cefTRIAXone/NS 1 GM/50 ML 1 GM/50 ML BAG IV SCH (10:00)
[2021-09-02] MEDS: guaiFENesin ER 600 MG TAB PO SCH ×2 (10:00→22:19)
[2021-09-02] MEDS: IPRATROPIUM/ALBUTEROL SULFATE 3 ML AMPUL.NEB IH SCH ×2 (11:30→19:55)
--- NOTE | 2021-09-02 12:24 | Electrocardiograph Report ---
[facility] Test Date: 2021-09-02 Test Time: 03:04:56 Pat Name: ANDREIA ERIC Department: Room: [place] [address] Gender: M [employer]: : 1960 Requested By: FRANKIE ALONZO III Order Number: [id number] Reading MD: Mitch Sotelo Measurements Intervals Cisco Rate: 73 P: 86 RI: 153 QRS: 90 QRSD: 73 T: 78 QT: 383 QTc: 422 Interpretive Statements Sinus rhythm Right atrial enlargement ST elevation suggests acute pericarditis No previous ECG available for comparison Electronically Signed On 09-02-2021 12:23:44 EDT by Mitch Sotelo
[2021-09-02] MEDS: methylPREDNISolone Sod Succinate 40 MG/1 ML INJ IV SCH ×2 (14:00→22:19)
[2021-09-02] MEDS ORDERED: methylPREDNISolone Sod Suc 60 MG in SODIUM CHLORIDE 0.9% 100 ML IV SCH (14:00)
--- NOTE | 2021-09-02 18:37 | History and Physical Report ---
History of Present Illness Date of examination: 09/02/21 Date of admission: 09/02/21 08:03 Chief complaint: Cough, fever and dyspnea x3 days History of present illness: 61-year-old -[place] male with no significant PMH other than COPD and tobacco smoking typically uses albuterol inhaler and no other meds. He never needed home O2. He cut back smoking currently smokes about 1/4 pack a day. Apparently ran out of his inhaler. Patient presents to ER with a 3-day history of fever, cough with clear phlegm, wheezing and dyspnea. He also complained of some chest discomfort, pleuritic in nature and somewhat reproducible in ED. Work-up in ED showed, afebrile and stable vital signs. CBC and chemistry unremarkable except creatinine 1.5ounces 1.3 in 02/2021. Troponin normal. Chest x-ray showed severe hyperinflation consistent with COPD but no pneumonia. CT chest confirmed the same. EKG showed some ST segment elevation suggestive of possible pericarditis. Patient reports that he did have 1 dose of COVID-19 vaccine several months ago. Patient denies contact with sick people. Patient was started on Solu-Medrol and nebulizer therapy in ED with the patient feeling improvement of his symptoms. ED physician recommending admission for COPD exacerbation. Review of systems: 13 systems reviewed and all other pertinent mention it. Patient currently lives alone. Patient denies history of diabetes, heart disease, cancers, hypertension or strokes. Denies headaches, dizziness, sore throat, sinus symptoms, hemoptysis, acute GI or urinary symptoms. Past medical history: COPD Social history: Lives by himself. Cut back smoking cigarettes to 3 to 5 cigarettes a day. Family history: Noncontributory Medications and Allergies Allergies Allergy/AdvReac Type Severity Reaction Status Date / Time No Known Allergies Allergy Verified 05/17/20 02:14 Home Medications Medication Instructions Recorded Confirmed Last Taken Type Cyclobenzaprine [Flexeril] 10 mg PO QHS #20 tablet 09/28/19 Unknown Rx HYDROcodone/APAP 5-325 [[place] 1 each PO Q6HR #10 tablet 09/28/19 Unknown Rx 5/325] Naproxen [Naprosyn] 500 mg PO BID #30 tablet 09/28/19 Unknown Rx Albuterol Sulfate [Proventil Hfa] 2 puff IH Q4HR PRN #1 hfa.aer.ad 05/17/20 Unknown Rx predniSONE [Deltasone] 50 mg PO QDAY #5 tab 05/17/20 Unknown Rx Active Meds: Active Medications Albuterol/Ipratropium (Ipratropium/Albuterol Sulfate 3 Ml Ampul.Neb) 1 ampul IH Q6HRT [facility] Last Admin: 09/02/21 11:30 Dose: Not Given Documented by: Azithromycin (Azithromycin 250 Mg Tab) 500 mg PO QDAY [facility]; Protocol Last Admin: 09/02/21 10:00 Dose: 500 mg Documented by: Enoxaparin Sodium (Enoxaparin 40 Mg/0.4 Ml Inj) 40 mg SUB-Q QDAY@2200 [facility]; Protocol Guaifenesin (Guaifenesin Er 600 Mg Tab) 600 mg PO BID [facility] Last Admin: 09/02/21 10:00 Dose: 600 mg Documented by: Sodium Chloride (Nacl 0.45% 1000 Ml) 1,000 mls @ 100 mls/hr IV DIRECT [facility] Ceftriaxone Sodium (Rocephin/Ns 2 Gm/100 Ml) 2 gm in 100 mls @ 200 mls/hr IV Q24H [facility]; Protocol Last Admin: 09/02/21 10:00 Dose: 200 mls/hr Documented by: Methylprednisolone Sodium Succinate (Methylprednisolone Sod Succinate 40 Mg/1 Ml Inj) 60 mg IV Q8HR [facility] Last Admin: 09/02/21 14:00 Dose: 60 mg Documented by: Exam - Constitutional Vitals: Temp Pulse Resp BP Pulse Ox 98.5 F 80 18 122/80 100 09/02/21 14:49 09/02/21 14:49 09/02/21 14:49 09/02/21 16:01 09/02/21 16:45 General appearance: Present: no acute distress, cachectic, disheveled, other (Alert and oriented.) - EENT Eyes: Present: PERRL, EOM intact ENT: clear oral mucosa - Neck Neck: Present: supple, other (No JVD.) - Respiratory Respiratory effort: normal Respiratory: bilateral: diminished (Mild wheezes currently. No rales or rhonchi.) - Cardiovascular Rhythm: regular - Extremities Extremities: No edema - Abdominal General gastrointestinal: Present: soft, non-distended, normal bowel sounds Male genitourinary: Present: deferred - Integumentary Integumentary: Absent: rash - Musculoskeletal Musculoskeletal: strength equal bilaterally - Psychiatric Psychiatric: appropriate mood/affect - Neurologic Neurologic: no focal deficits, other (Fully alert and oriented.) HEART Score - HEART Score History: Slightly suspicious EKG: Non-specific Age: 45-65 Risk factors: 1-2 risk factors Troponin: Troponin T < 0.010 ng/mL (0.00-0.029) 09/02/21 04:50 Troponin: < normal limit HEART Score: 3 Results - Labs CBC & Chem 7: 09/02/21 03:47 09/02/21 04:50 Labs: Laboratory Last Values WBC 8.1 K/mm3 (4.5-11.0) 09/02/21 03:47 RBC 5.00 M/mm3 (3.65-5.03) 09/02/21 03:47 Hgb 16.3 gm/dl (11.8-15.2) H 09/02/21 03:47 Hct 49.8 % (35.5-45.6) H 09/02/21 03:47 MCV 100 fl (84-94) H 09/02/21 03:47 MCH 33 pg (28-32) H 09/02/21 03:47 MCHC 33 % (32-34) 09/02/21 03:47 RDW 15.1 % (13.2-15.2) 09/02/21 03:47 Plt Count 220 K/mm3 (140-440) 09/02/21 03:47 Lymph % (Auto) 21.2 % (13.4-35.0) 09/02/21 03:47 [place] % (Auto) 10.7 % (0.0-7.3) H 09/02/21 03:47 Eos % (Auto) 5.7 % (0.0-4.3) H 09/02/21 03:47 Baso % (Auto) 0.6 % (0.0-1.8) 09/02/21 03:47 Lymph # (Auto) 1.7 K/mm3 (1.2-5.4) 09/02/21 03:47 [place] # (Auto) 0.9 K/mm3 (0.0-0.8) H 09/02/21 03:47 Eos # (Auto) 0.5 K/mm3 (0.0-0.4) H 09/02/21 03:47 Baso # (Auto) 0.0 K/mm3 (0.0-0.1) 09/02/21 03:47 Seg Neutrophils % 61.8 % (40.0-70.0) 09/02/21 03:47 Seg Neutrophils # 5.0 K/mm3 (1.8-7.7) 09/02/21 03:47 Sodium 145 mmol/L (137-145) 09/02/21 04:50 Potassium 4.1 mmol/L (3.6-5.0) 09/02/21 04:50 Chloride 104.6 mmol/L (98-107) 09/02/21 04:50 Carbon Dioxide 29 mmol/L (22-30) 09/02/21 04:50 Anion Gap 16 mmol/L 09/02/21 04:50 BUN 13 mg/dL (9-20) 09/02/21 04:50 Creatinine 1.5 mg/dL (0.8-1.3) H 09/02/21 04:50 Estimated GFR 58 ml/min 09/02/21 04:50 BUN/Creatinine Ratio 9 % 09/02/21 04:50 Glucose 137 mg/dL (75-100) H 09/02/21 04:50 Calcium 9.3 mg/dL (8.4-10.2) 09/02/21 04:50 Total Bilirubin 0.40 mg/dL (0.1-1.2) 09/02/21 04:50 AST 29 units/L (5-40) 09/02/21 04:50 ALT 13 units/L (7-56) 09/02/21 04:50 Alkaline Phosphatase 81 units/L (35-129) 09/02/21 04:50 Troponin T < 0.010 ng/mL (0.00-0.029) 09/02/21 04:50 Total Protein 6.7 g/dL (6.3-8.2) 09/02/21 04:50 Albumin 4.0 g/dL (3.9-5) 09/02/21 04:50 Albumin/Globulin Ratio 1.5 % 09/02/21 04:50 Assessment and Plan Assessment and plan: 61-year-old male with PMH of COPD and tobacco smoking presents with a 3-day history of cough fever, wheezing and dyspnea and reported out of his albuterol inhaler. He does not seem to see doctors. Assessment: Mild COPD exacerbation Tobacco smoking Patient reports refusing a single dose of COVID-19 vaccine several months ago Atypical chest pains, pleuritic as well as a reproducible EKG: Mild ST changes suggestive of possible pericarditis Troponin x1 normal Chest x-ray and CT demonstrate significant COPD but no pneumonia or pulmonary edema. Plan: Ordered CRP and LDH, consider echocardiogram Empiric antibiotic therapy with Rocephin/azithromycin, DuoNeb, Solu-Medrol and Mucinex Incentive spirometry Supplemental oxygen as needed DVT prophylaxis: Subcu Lovenox Disposition: Hopefully could be discharged home Discussed with the patient and the nursing staff Advance Directives: Yes VTE prophylaxis?: Chemical Plan of care discussed with patient/family: Yes
[2021-09-02 19:04] LABS: C-Reactive Protein 0.1 mg/dL (0.00-1.30)
[2021-09-02] MEDS: ENOXAPARIN 40 MG/0.4 ML INJ SUB-Q SCH (22:20)
[2021-09-02] MEDS: SODIUM CHLORIDE 0.45% 1000 ML 1,000 ML IV SCH (23:52)
[2021-09-03] MEDS: IPRATROPIUM/ALBUTEROL SULFATE 3 ML AMPUL.NEB IH SCH ×5 (04:15→20:39)
[2021-09-03] MEDS: methylPREDNISolone Sod Succinate 40 MG/1 ML INJ IV SCH ×3 (06:23→21:26)
[2021-09-03 10:16] LABS: BUN/Creatinine Ratio 15; Blood Urea Nitrogen 16 mg/dL (9-20); Calcium 8.6 mg/dL (8.4-10.2); Hemolysis Index 10
[2021-09-03] MEDS: AZITHROMYCIN 250 MG TAB PO SCH (10:29)
[2021-09-03] MEDS: guaiFENesin ER 600 MG TAB PO SCH ×2 (10:29→21:26)
--- NOTE | 2021-09-03 20:46 | Progress Note ---
Assessment and Plan Assessment and plan: 61-year-old male with PMH of COPD and tobacco smoking presents with a 3-day history of cough fever, wheezing and dyspnea and reported out of his albuterol inhaler. He does not seem to see doctors. Assessment: Mild COPD exacerbation Tobacco smoking Patient reports receiving a single dose of COVID-19 vaccine several months ago Atypical chest pains, pleuritic as well as a reproducible EKG: Mild ST changes suggestive of possible pericarditis Troponin x1 normal, LDH 181, CRP 6.7 Chest x-ray and CT demonstrate significant COPD but no pneumonia or pulmonary edema. Plan: Wheezing and dyspnea improving consider echocardiogram if chest pain persists Continue empiric antibiotic therapy with Rocephin/azithromycin, DuoNeb, Solu- Medrol and Mucinex Incentive spirometry Supplemental oxygen as needed DVT prophylaxis: Subcu Lovenox Disposition: Hopefully could be discharged soon Discussed with the patient and the nursing staff History Interval history: Patient reports improvement of dyspnea and wheezing. Has some cough and clear phlegm. Afebrile. Vital signs stable. Hospitalist Physical - Constitutional Vitals: Temp Pulse Resp BP Pulse Ox 98.3 F 87 18 126/80 97 09/03/21 16:05 09/03/21 20:00 09/03/21 20:00 09/03/21 16:05 09/03/21 16:05 General appearance: Present: no acute distress, cachectic, disheveled, other (Alert and oriented.) - EENT Eyes: Present: PERRL, EOM intact ENT: hearing intact, clear oral mucosa - Neck Neck: Present: supple - Respiratory Respiratory effort: normal Respiratory: bilateral: diminished, wheezing (Mild wheezes) - Cardiovascular Rhythm: regular - Extremities Extremities: No edema - Abdominal General gastrointestinal: soft, non-tender, non-distended, normal bowel sounds - Integumentary Integumentary: Absent: rash - Psychiatric Psychiatric: appropriate mood/affect - Neurologic Neurologic: no focal deficits HEART Score - HEART Score EKG: Non-specific Age: 45-65 Risk factors: 1-2 risk factors Troponin: Troponin T < 0.010 ng/mL (0.00-0.029) 09/02/21 04:50 Troponin: < normal limit Results - Labs CBC & Chem 7: 09/02/21 03:47 09/03/21 09:37 Labs: Laboratory Last Values WBC 8.1 K/mm3 (4.5-11.0) 09/02/21 03:47 RBC 5.00 M/mm3 (3.65-5.03) 09/02/21 03:47 Hgb 16.3 gm/dl (11.8-15.2) H 09/02/21 03:47 Hct 49.8 % (35.5-45.6) H 09/02/21 03:47 MCV 100 fl (84-94) H 09/02/21 03:47 MCH 33 pg (28-32) H 09/02/21 03:47 MCHC 33 % (32-34) 09/02/21 03:47 RDW 15.1 % (13.2-15.2) 09/02/21 03:47 Plt Count 220 K/mm3 (140-440) 09/02/21 03:47 Lymph % (Auto) 21.2 % (13.4-35.0) 09/02/21 03:47 [place] % (Auto) 10.7 % (0.0-7.3) H 09/02/21 03:47 Eos % (Auto) 5.7 % (0.0-4.3) H 09/02/21 03:47 Baso % (Auto) 0.6 % (0.0-1.8) 09/02/21 03:47 Lymph # (Auto) 1.7 K/mm3 (1.2-5.4) 09/02/21 03:47 [place] # (Auto) 0.9 K/mm3 (0.0-0.8) H 09/02/21 03:47 Eos # (Auto) 0.5 K/mm3 (0.0-0.4) H 09/02/21 03:47 Baso # (Auto) 0.0 K/mm3 (0.0-0.1) 09/02/21 03:47 Seg Neutrophils % 61.8 % (40.0-70.0) 09/02/21 03:47 Seg Neutrophils # 5.0 K/mm3 (1.8-7.7) 09/02/21 03:47 Sodium 134 mmol/L (137-145) L D 09/03/21 09:37 Potassium 4.4 mmol/L (3.6-5.0) 09/03/21 09:37 Chloride 101.4 mmol/L (98-107) 09/03/21 09:37 Carbon Dioxide 23 mmol/L (22-30) 09/03/21 09:37 Anion Gap 14 mmol/L 09/03/21 09:37 BUN 16 mg/dL (9-20) 09/03/21 09:37 Creatinine 1.1 mg/dL (0.8-1.3) 09/03/21 09:37 Estimated GFR > 60 ml/min 09/03/21 09:37 BUN/Creatinine Ratio 15 % 09/03/21 09:37 Glucose 292 mg/dL (75-100) H 09/03/21 09:37 Calcium 8.6 mg/dL (8.4-10.2) 09/03/21 09:37 Total Bilirubin 0.40 mg/dL (0.1-1.2) 09/02/21 04:50 AST 29 units/L (5-40) 09/02/21 04:50 ALT 13 units/L (7-56) 09/02/21 04:50 Alkaline Phosphatase 81 units/L (35-129) 09/02/21 04:50 Lactate Dehydrogenase 181 units/L (91-180) H 09/02/21 04:50 Troponin T < 0.010 ng/mL (0.00-0.029) 09/02/21 04:50 C-Reactive Protein 0.10 mg/dL (0.00-1.30) 09/02/21 04:50 Total Protein 6.7 g/dL (6.3-8.2) 09/02/21 04:50 Albumin 4.0 g/dL (3.9-5) 09/02/21 04:50 Albumin/Globulin Ratio 1.5 % 09/02/21 04:50 Horowitz/IV: Voiding Method Toilet Active Medications - Current Medications Current Medications: Generic Name Dose Route Start Last Admin Trade Name Freq PRN Reason Stop Dose Admin Albuterol/Ipratropium 1 ampul 09/02/21 09:00 09/03/21 20:39 Ipratropium/Albuterol Sulfate 3 Ml Ampul.Neb IH 1 ampul Q6HRT [facility] Administration Azithromycin 500 mg 09/02/21 10:00 09/03/21 10:29 Azithromycin 250 Mg Tab PO 500 mg QDAY [facility] Administration Protocol Enoxaparin Sodium 40 mg 09/02/21 22:00 09/02/21 22:20 Enoxaparin 40 Mg/0.4 Ml Inj SUB-Q 40 mg QDAY@2200 [facility] Administration Protocol Guaifenesin 600 mg 09/02/21 10:00 09/03/21 10:29 Guaifenesin Er 600 Mg Tab PO 600 mg BID [facility] Administration Sodium Chloride 1,000 mls @ 100 mls/hr 09/02/21 09:00 09/02/21 23:52 Nacl 0.45% 1000 Ml IV 100 mls/hr DIRECT [facility] Administration Ceftriaxone Sodium 2 gm in 100 mls @ 200 mls/hr 09/02/21 10:00 09/02/21 10:00 Rocephin/Ns 2 Gm/100 Ml IV 200 mls/hr Q24H [facility] Administration Protocol Methylprednisolone Sodium Succinate 60 mg 09/02/21 14:00 09/03/21 06:23 Methylprednisolone Sod Succinate 40 Mg/1 Ml Inj IV 60 mg Q8HR [facility] Administration
[2021-09-03] MEDS: cefTRIAXone/NS 2 GM/100 ML 2 GM/100 ML BAG IV SCH (21:25)
[2021-09-03] MEDS: ENOXAPARIN 40 MG/0.4 ML INJ SUB-Q SCH (21:26)
[2021-09-03] MEDS: SODIUM CHLORIDE 0.45% 1000 ML 1,000 ML IV SCH (21:28)
[2021-09-04] MEDS: methylPREDNISolone Sod Succinate 40 MG/1 ML INJ IV SCH ×2 (05:49→17:20)
[2021-09-04] MEDS: IPRATROPIUM/ALBUTEROL SULFATE 3 ML AMPUL.NEB IH SCH ×3 (06:29→15:00)
[2021-09-04] MEDS: AZITHROMYCIN 250 MG TAB PO SCH (09:55)
[2021-09-04] MEDS: guaiFENesin ER 600 MG TAB PO SCH (09:55)
[2021-09-04 16:37] VITALS: BP 124/73
[2021-09-04] MEDS: cefTRIAXone/NS 2 GM/100 ML 2 GM/100 ML BAG IV SCH (17:20)
--- NOTE | 2021-09-04 19:46 | Discharge Summary ---
Providers - Providers Date of Admission: 09/04/21 10:32 Attending physician: RADHA MCDUFFIE MD [facility] Condition: Stable Hospital course: Patient reports cough and breathing better. Remains on IV Solu-Medrol and DuoNeb. Chest pains actually resolved/improved. Echocardiogram ordered as there was some concern for pericarditis based on atypical chest pains and the EKG changes. Echocardiogram report is pending. However, patient left AMA. Disposition: LEFT AGAINST MEDICAL ADVICE Exam - Constitutional Vitals: Temp Pulse Resp BP Pulse Ox 98.5 F 102 H 18 124/73 95 09/04/21 15:54 09/04/21 15:54 09/04/21 15:54 09/04/21 15:54 09/04/21 15:54 Plan Follow up with: KATIUSKA MCCALL MD [Primary Care Provider] - 3-5 Days
== END 2021-09-04 22:33 | disposition home health service (06) | DRG 191 ==
LOC: ED 02:58 → INTOOBSV 08:03 → 3A 08:03 → 4A 14:44 → OBSVTOIN 09-04 10:32
PROVIDERS: ADMIT Internal Medicine; ATTEND Internal Medicine
DX: J44.1 Chronic obstructive pulmonary disease with (acute) exacerbation (principal); N17.9 Acute kidney failure, unspecified; R07.89 Other chest pain; F17.210 Nicotine dependence, cigarettes, uncomplicated; N18.9 Chronic kidney disease, unspecified
CPT/HCPCS: 36415; 71046; 71260; 80048; 80053; 83615; 84484; 85025; 86140; 93005; 93306; 94640; G0378; J0696; J1650; J2920; J2930; J7030; Q9967